=== PATIENT | male | born 1980 ===

== ENCOUNTER 2024-10-17 06:19 | Day surgery (SDC) | payer OTHER, SELFPAY | END 2024-10-17 14:21 | disposition home or self-care (01) | LOC: GI 06:19 | PROVIDERS: ATTENDING PHYSICIAN Internal Medicine Gastroenterology | DX: Z12.11 Encounter for screening for malignant neoplasm of colon (principal); K64.8 Other hemorrhoids; K57.30 Diverticulosis of large intestine without perforation or abscess without bleeding; Z86.0100 Personal history of colon polyps, unspecified; D12.5 Benign neoplasm of sigmoid colon | CPT/HCPCS: 45385; 88305 ==